=== PATIENT | male | born 1940 | race Caucasian/White ===

== ENCOUNTER 2020-04-22 10:30 | Outpatient (NON) | payer MEDICARE, OTHER, SELFPAY ==
[2020-04-22 18:56] LABS: SARS-CoV-2 RNA PCR Negative
== END 2020-04-22 10:31 ==
PROVIDERS: Visit Provider Internal Medicine
DX: R05 Cough (principal); R50.9 Fever, unspecified; Z20.828 Contact with and (suspected) exposure to other viral communicable diseases
CPT/HCPCS: 87635; C9803; U0003

== ENCOUNTER 2020-06-27 18:39 | Emergency (ER) | payer MEDICARE, SELFPAY ==
--- NOTE | ~2020-06-27 | XR_ITS ---
EXAMINATION: XR chest 1V portable DATE: 06/27/2020 23:59 INDICATION: Respiratory distress TECHNIQUE: frontal view of the chest was obtained. COMPARISON: Chest radiograph and CT from earlier on 06/27/2020 FINDINGS: The lungs remain clear with no focal airspace opacities, pulmonary edema, pleural effusion or pneumot horax. Cardiomegaly. Unchanged mediastinal widening secondary to previously identified ascending thor acic aortic aneurysm. 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 IMPRESSION: 1. No acute cardiopulmonary disease. 2. Cardiomegaly and mediastinal widening resulting from an ascending thoracic aortic aneurysm. Reviewed, dictated and finalized at location A. IMPRESSION: 1. No acute cardiopulmonary disease. 2. Cardiomegaly and mediastinal widening resulting from an ascending thoracic a ortic aneurysm.
--- NOTE | ~2020-06-27 | XR_ITS ---
XR chest 1V portable 06/27/2020 19:57 Indication: Shortness of breath and fever Procedure: AP portable chest Comparison: No prior studies for comparison. Findings: Cardiomegaly. No focal air space disease, pulmonary edema, pleural effusion or suspected pn eumothorax. No acute osseous abnormality. Impression: 1: No acute cardiopulmonary disease. Reviewed, dictated and finalized at location A. Impression: 1: No acute cardiopulmonary disease.
--- NOTE | ~2020-06-27 | CT_ITS ---
EXAMINATION: CTA chest PE protocol DATE: 06/27/2020 22:03 CDT INDICATION: Chest pain TECHNIQUE: Computed tomographic angiography (CTA) of the chest was performed with 100 mL Omnipaque-35 0 intravenous contrast. The dose-length product was 900.29 mGy-cm. Maximum intensity projection 3D-re constructions of the aorta and other arteries were constructed by the technologist on a separate work station. Automated exposure control and iterative reconstruction technique were employed. COMPARISON: None. FINDINGS: Study is technically adequate without evidence for pulmonary embolism. There is a fusiform ascending thoracic aortic aneurysm measuring 7.3 cm. Borderline size mediastinal lymph nodes, likely reactive. Cardiomegaly. No significant pleural or pericardial effusion. The upper abdomen is unremark able. There is bilateral lower lobe atelectasis/scarring. Pneumonia is less favored. There are degene rative changes of the shoulders. No pneumothorax. No acute osseous abnormality. Mild thoracic spondyl osis. IMPRESSION: 1. No evidence for pulmonary embolism. 2: Fusiform ascending thoracic aortic aneurysm measuring 7.3 cm. 3: Linear infiltrates of the lower lobes, most likely atelectasis/scarring. Pneumonia less favored. Reviewed, dictated and finalized at location A. IMPRESSION: 1. No evidence for pulmonary embolism. 2: Fusiform ascending thoracic aortic aneurysm measuring 7.3 cm. 3: Linear infiltrates of the lower lobes, most likely atelectasis/scarring. Pn eumonia less favored.
[2020-06-27 18:48] VITALS: BP 160/72; PULSE 98; RESP 22; TEMP 38.4; O2SAT 93
--- NOTE | 2020-06-27 18:53 | ECG_ITS ---
Measurements Intervals [place] Rate: 96 P: 60 ME: 215 QRS: -15 QRSD: 134 T: 52 QT: 404 QTc: 512 Interpretive Statements SINUS RHYTHM WITH FIRST DEGREE AV BLOCK ATRIAL PREMATURE COMPLEX RIGHT BUNDLE BRANCH BLOCK ABNORMAL ECG Electronically Signed On 06-28-2020 7:21:20 CDT by Van Amaral D.O.
[2020-06-27 19:14] LABS: Basophils Percent Auto 0.4 % (0.2-1.2); Hematocrit 45.6 % (42.0-52.0); Hemoglobin 15.6 g/dL (14.0-18.0); Immature Granulocyte Absolute 0.03 K/mm3 (0.00-0.031); Immature Granulocyte Percent A 0.6 % (0-0.5); Immature Platelet Fraction Pct 3.8 % (0.9-11.2); Lymphocytes Absolute Auto 0.45 K/mm3 (0.9-3.2); Lymphocytes Percent Auto 9.4 % (18.3-44.2); Mean Corpuscular HGB Conc 34.2 g/dl (32-36); Mean Corpuscular Hemoglobin 31.8 pg (26-34); Mean Corpuscular Volume 93.1 fl (80-100); Monocytes Absolute Auto 0.3 K/mm3 (0.1-0.6); Monocytes Percent Auto 6.7 % (2.6-8.5); Neutrophils Percent Auto 82.9 % (45.5-73.1); Platelet Count Result 129 k/mm3 (150-375); Red Cell Distribution Width 13.8 % (11.5-14.5); White Blood Count 4.8 K/mm3 (4.5-10.0)
--- NOTE | 2020-06-27 19:22 | ED.GENADULT ---
HPI - General Adult General Chief complaint: Shortness of Breath/Dyspnea Stated complaint: SOB Time Seen by Provider: 06/27/20 19:04 Source: patient Mode of arrival: EMS Limitations: no limitations History of Present Illness HPI narrative: This patient is a 79 year old male who presents for evaluation of difficulty urinating and shortness of breath. Patient statse he was talking on the phone with his PCP , and he was short of breath. HE states he had just walked up a flight of stairs before calling EMS. He was calling his PCP because he has been having 2 days of increased urinary urgency and frequency. He is only urinating a small amount at a time so he he having to go up and down the stairs frequently. He denies sob currently. He denies chest pain, dizziness, nausea, vomiting. He also denies abdominal pain or back pain. He was found to have a fever in the ER but he denies fever or chills at home. He states he took stool softeners for constipation tonight. He has only been able to have small bowel movements yesterday. Related Data Allergies Allergy/AdvReac Type Severity Reaction Status Date / Time No Known Allergies Allergy Verified 06/27/20 20:59 Review of Systems Review of Systems: All systems reviewed & are unremarkable except as noted in HPI and below Constitutional: Constitutional: Denies chills and Denies fever(s) ENT: Reports nasal congestion and Denies sore throat Cardiovascular: Cardiovascular: Denies chest pain, Denies rapid heart rate and Denies radiating jaw, neck or arm pain Respiratory: Respiratory: Reports cough (chronic cough at night) and Reports dyspnea Gastrointestinal: Gastrointestinal: Denies abdominal pain, Reports constipation, Denies diarrhea, Denies nausea and Denies vomiting Genitourinary: Genitourinary: Denies hematuria, Reports urinary frequency and Reports urinary urgency Neurologic: Denies headache(s) and Denies numbness PMFSH Past Medical History Medical History (Updated 06/28/20 @ 02:30 by Hazel Kamara MD) Anxiety Hypertension Family History Family History (Updated 09/14/17 @ 10:15 by DOCTOR UNKNOWN) Other Carcinoma of colon Family history of coronary artery disease Social History Social History Smoking status: Never smoker Alcohol intake: current Gender identity (if verbalized by the patient): Male Exam Const: General: no acute distress and alert Orientation/consciousness: patient oriented x3 HENMT: Head: normocephalic and atraumatic Face and sinus: face symmetric Throat: posterior oropharynx normal, tonsils normal and uvula midline Eyes: Pupils: Equal, round and reactive pupils present EOM: EOMs intact bilaterally Chest: Chest palpation & inspection: normal inspection of the chest Resp: Effort & Inspection: normal respiratory effort and no retractions Auscultation: clear to auscultation bilaterally Cardio: Rate: regular rate Rhythm: regular rhythm Heart sounds: no murmurs GI: GI Palp: Yes Soft to palpation, No Tenderness to palpation present (GI), No Guarding due to palpation present (GI) and No Rigid due to palpation Skin: General skin exam: normal color Rashes: no rashes Neuro: General: patient oriented x3 and moves all extremities Psych: Mental Status: mental status grossly normal Affect: normal affect Course Reevaluation(s) Reevaluation #1: I had discussed with patient and his daughter the plan to transfer due to his thoracic aneurysm. He denied chest pain or abdominal pain so this is likely incidental finding. AFter getting patient accepting to [facility] , nursing staff reports patient started becoming anxious. His daughter states he started getting scared about the diagnosis so he started shaking and hyperventilating. He was having audible wheezing and becoming agitated. PAtient was given Ativan and Haldol in order to calm him down. He was also placed on Bipap until patient becomes calm. Date: 06/28/20 [place]
[2020-06-27 19:24] LABS: Anion Gap 9 mmol/L (8-16); Blood Urea Nitrogen 28 mg/dL (9-20); Calcium 8.7 mg/dL (8.4-10.2); Carbon Dioxide 20 mmol/L (22-30); Chloride 104 mmol/L (98-107); Estimated CRCL calculation 74 ml/min; Estimated Glomerular Filt Rate > 60; Glucose 156 mg/dL (75-110); Potassium 4.2 mmol/L (3.4-5.0); Sodium 133 mmol/L (137-145)
[2020-06-27 19:25] LABS: Lactic Acid Reflex 1.7 mmol/L (0.7-2.1)
[2020-06-27 19:33] LABS: Alanine Aminotransferase 32 U/L (4-50); Albumin Level 3.9 g/dL (3.5-5.1); Alkaline Phosphatase 67 U/L (38-126); Aspartate Amino Transferase 48 U/L (17-59); Bilirubin,Total 2.2 mg/dL (0.2-1.3)
[2020-06-27 19:33] LABS: Alveolar/Arterial O2 Gradient 54.8 mmHg; Base Excess ABG -2.7 mEq/l (+/-2.0); Carboxyhemoglobin 0.8 % THb (0-2.0); Device ROOM AIR; Fractional Inspired Oxygen 21 %; HCO3 ABG 18.8 mEq/l (22.0-26.0); Methemoglobin ABG 0.5 %THb (0-1.5); Modified Allen's Test Pass; Oxygen Content ABG 20.6 %vol (16.0-22.0); Oxygen Saturation ABG 94.3 % (95.0-100.0); Oxyhemoglobin 92.8 % THb (90.0-100.0); PCO2 ABG 25.7 mmHg (35.0-45.0); PO2 ABG 64.2 mmHg (80.0-100.0); PO2 FiO2 Ratio Arterial Blood 3.06 %; Reduced Hemoglobin 5.9 %THb (0-5.0); Site Drawn RIGHT RADIAL; Total Hemoglobin 15.8 g/dL (12.0-18.0); pH ABG 7.482 (7.350-7.450)
[2020-06-27 19:34] LABS: Lactate Dehydrogenase 528 U/L (313-618)
[2020-06-27 19:37] LABS: CRP 8.3 mg/dL (<1.0)
[2020-06-27 19:40] LABS: NT Pro B Type Natriuretic Pept 7520 PG/ML (5-100)
[2020-06-27 20:30] LABS: INR 1.2
[2020-06-27 20:31] LABS: Partial Thromboplastin Time 33.7 SECONDS (22.3-36.8)
[2020-06-27 20:33] LABS: D Dimer 1.36 ug/mL (<0.48)
[2020-06-27] MEDS: SODIUM CHLORIDE 0.9% IV 1,000 ML 999 ML IV CONT (21:00)
[2020-06-27 21:24] VITALS: BP 158/73; PULSE 88; RESP 16; O2SAT 97
[2020-06-27 22:31] LABS: Estimated CRCL calculation 74 ml/min; Estimated Glomerular Filt Rate > 60
[2020-06-27 22:42] VITALS: BP 153/63; PULSE 73; RESP 18; O2SAT 95
[2020-06-27] MEDS: METOPROLOL TARTRATE INJ 5 MG/5 ML VIAL IV PUSH ×2 (22:42→23:16)
[2020-06-27 23:00] LABS: Add Urine Microscopic? YES; Appearance Urine Cloudy (Clear); Bacteria Urine Trace /hpf; Bilirubin Urine Negative (Negative); Blood Urine 3+ (Negative); Color Urine Yellow (Yellow); Glucose Urine UA Negative (Negative); Ketones Urine Negative (Negative); Leukocyte Esterase Ur 2+ LEU/UL (Negative); Mucus Urine Rare /lpf; Nitrate Urine Positive (Negative); Protein Urine 2+ mg/dL (Negative); RBC Urine >75 /hpf (0-2); Specific Grav Ur 1.018 (1.001-1.035); Squamous Epithelial Cell Urine Rare /hpf (Few); Urobilinogen Urine Negative mg/dL (<2.0); WBC Urine >75 /hpf
[2020-06-28] VITALS: RESP 32
[2020-06-28] MEDS: HALOPERIDOL LACTATE 5 MG/ML VIAL IV PUSH (00:05)
[2020-06-28 00:06] VITALS: PULSE 80; RESP 31; O2SAT 100
--- NOTE | 2020-06-28 00:54 | PC.NURSE ---
Jose ruiz makaweli called to take triage info for transfer.
[2020-06-28 01:03] VITALS: BP 126/84; PULSE 88; RESP 18; O2SAT 98
[2020-06-28 01:20] VITALS: RESP 32
[2020-06-28 01:32] LABS: Base Excess ABG -2.8 mEq/l (+/-2.0); HCO3 ABG 18.9 mEq/l (22.0-26.0); Oxygen Saturation ABG 99.8 % (95.0-100.0); PCO2 ABG 26.3 mmHg (35.0-45.0); PO2 ABG 363.2 mmHg (80.0-100.0); Total Hemoglobin 15.7 g/dL (12.0-18.0); pH ABG 7.475 (7.350-7.450)
[2020-06-28 01:33] LABS: Alveolar/Arterial O2 Gradient 323.5 mmHg; Device NON-INVASIVE VENT; Fractional Inspired Oxygen 100 %; Modified Allen's Test Pass; Oxygen Content ABG 22.6 %vol (16.0-22.0); Oxyhemoglobin 98.4 % THb (90.0-100.0); PO2 FiO2 Ratio Arterial Blood 3.63 %; Site Drawn RIGHT RADIAL
[2020-06-28 01:34] LABS: Non-Invasive Expiratory Pressure 6 CMH2O; Non-Invasive Inspiratory Pressure 18 CMH2O; Non-Invasive Vent Rate 4 /MIN
[2020-06-28 01:37] VITALS: BP 117/66; PULSE 88; RESP 22; O2SAT 96
[2020-06-28 02:43] VITALS: BP 113/66; PULSE 88; RESP 18; TEMP 36.8; O2SAT 96
--- NOTE | 2020-06-28 04:13 | PC.NURSE ---
solo has arrived
[2020-06-28 14:38] LABS: SARS-CoV-2 RNA PCR Negative
== END 2020-06-28 04:25 | disposition short-term general hospital (02) ==
PROVIDERS: Emergency Medicine; Emergency Provider General Practice
DX: I71.2 Thoracic aortic aneurysm, without rupture (principal); N39.0 Urinary tract infection, site not specified; R79.89 Other specified abnormal findings of blood chemistry; Z20.828 Contact with and (suspected) exposure to other viral communicable diseases; I10 Essential (primary) hypertension; I44.0 Atrioventricular block, first degree; I49.1 Atrial premature depolarization; I45.10 Unspecified right bundle-branch block; I51.7 Cardiomegaly
CPT/HCPCS: 36415; 36600; 51702; 71045; 71275; 80048; 80076; 81001; 82375; 82728; 82805; 83050; 83605; 83615; 83880; 84484; 85025; 85055; 85380; 85610; 85730; 86140; 87040; 87077; 87086; 87088; 87186; 87635; 93005; 94002; 96361; 96365; 96367; 96375; 96376; 99291; C9803; J0131; J0696; J1630; J2060; J7030; Q9967; U0003